=== PATIENT | female | born 1960 | race Caucasian/White ===

== ENCOUNTER → 2017-07-20 | Outpatient (CLI) | payer OTHER ==
[2017-07-20 18:29] LABS: BLOOD UREA NITROGEN 14 mg/dl (7-18); BUN/CREATININE RATIO 17.3 (10-20); CALCIUM 8.6 mg/dl (8.5-10.1); CARBON DIOXIDE 32 mmol/L (21-32); CHLORIDE 107 mmol/L (98-107); CREATININE 0.81 mg/dl (0.60-1.20); GLUCOSE 83 mg/dl (70-99); POTASSIUM 4.2 mmol/L (3.5-5.1); SODIUM 142 mmol/L (136-145)
== END | disposition home or self-care (01) ==
LOC: C.LABMFLN 11:11
PROVIDERS: ATTEND Family Medicine
DX: I10 Essential (primary) hypertension (principal)

== ENCOUNTER → 2018-01-19 | Outpatient (CLI) | payer OTHER ==
[2018-01-19 18:06] LABS: BASO % 0.6 %; BASO ABS # 0.04 K/uL (0-0.2); EOS % 5.6 %; EOS ABS # 0.36 K/uL (0-0.5); HEMATOCRIT 40.3 % (37-47); HEMOGLOBIN 13.6 g/dL (12.0-16.0); IG# 0.02 K/uL (0.00-0.02); LYMPH % 33.4 %; LYMPH ABS # 2.15 K/uL (1.2-3.4); MEAN CORPUSCULAR HGB CONC 33.7 g/dl (32-36); MONO % 6.1 %; MONO ABS # 0.39 K/uL (0.11-0.59); NEUT ABS # 3.47 K/uL (1.4-6.5); PLATELET COUNT 237 K/uL (130-400); RED CELL DISTRIBUTION WIDTH CV 12.9 % (11.5-14.5); RED CELL DISTRIBUTION WIDTH SD 41.9 fL (36.4-46.3); WHITE BLOOD COUNT 6.43 K/uL (4.8-10.8)
[2018-01-19 19:38] LABS: ALBUMIN 3.8 gm/dl (3.4-5.0); ALT/SGPT 21 U/L (12-78); AST/SGOT 18 U/L (15-37); BLOOD UREA NITROGEN 21 mg/dl (7-18); CALCIUM 9.3 mg/dl (8.5-10.1); CARBON DIOXIDE 27 mmol/L (21-32); CREATININE 0.92 mg/dl (0.60-1.20); GLUCOSE 97 mg/dl (70-99); POTASSIUM 4.1 mmol/L (3.5-5.1); SODIUM 138 mmol/L (136-145)
[2018-01-19 19:40] LABS: ALKALINE PHOSPHATASE 76 U/L (45-117); TOTAL PROTEIN 7.6 gm/dl (6.4-8.2)
== END | disposition home or self-care (01) ==
LOC: C.LABMFLN 11:02
PROVIDERS: ATTEND Family Medicine
DX: K62.5 Hemorrhage of anus and rectum (principal)